=== PATIENT | female | born 1990 | race Caucasian/White ===

== ENCOUNTER 2020-11-05 17:05 | Emergency (ER) | payer OTHER ==
[~2020-11-05 17:05] MED LIST: BACTRIM DS TAB1 EACH PO; BUPROPION XL150 MG PO; NORETHINDRONE0.35 MG PO
[2020-11-05] MEDS ORDERED: FLEXERIL5 MG PO (18:20)
== END 2020-11-05 18:35 | disposition home or self-care (01) ==
LOC: FER 17:05
DX: S39.012A Strain of muscle, fascia and tendon of lower back, initial encounter (principal); F17.200 Nicotine dependence, unspecified, uncomplicated; V43.52XA Car driver injured in collision with other type car in traffic accident, initial encounter; Y92.410 Unspecified street and highway as the place of occurrence of the external cause
CPT/HCPCS: 72110

== ENCOUNTER 2021-05-02 16:51 | Emergency (ER) | payer OTHER | END 2021-05-02 22:12 | disposition home or self-care (01) | LOC: FER 16:51 | DX: O9A.219 Injury, poisoning and certain other consequences of external causes complicating pregnancy, unspecified trimester (principal); S10.93XA Contusion of unspecified part of neck, initial encounter; S20.311A Abrasion of right front wall of thorax, initial encounter; O99.334 Smoking (tobacco) complicating childbirth; F17.200 Nicotine dependence, unspecified, uncomplicated; Z88.8 Allergy status to other drugs, medicaments and biological substances; Y04.2XXA Assault by strike against or bumped into by another person, initial encounter; Y92.009 Unspecified place in unspecified non-institutional (private) residence as the place of occurrence of the external cause ==

== ENCOUNTER 2021-06-13 06:53 | Emergency (ER) | payer OTHER ==
[~2021-06-13 06:53] MED LIST changes: +FLEXERIL5 MG PO
[2021-06-13 08:27] LABS: BASOPHIL 0.4 % (0-2); EOSINOPHIL 3.2 % (0-5); HCT 40.4 % (37.0-47.0); HGB 13.7 g/dl (12.5-16.0); LYMPHOCYTE 4.4 % (15-48); MCH 31.2 pg (25.0-31.0); MCHC 33.9 g/dL (32.0-36.0); MPV 9.8 fL (6.0-9.5); NEUTROPHIL 85.7 % (41-80); NRBC 0; PLT 173 K/uL (150-400); RBC 4.39 M/uL (4.20-5.40); RDW 12.1 % (11.5-14.0); WBC 6.9 K/uL (4.0-10.5)
[2021-06-13 08:44] LABS: ALBUMIN 3.6 g/dL (3.4-5.0); BILIRUBIN - TOTAL 0.2 mg/dL (0.2-1.0); BUN/CREAT RATIO (CALC) 12.3 RATIO; CREATININE 0.65 mg/dL (0.51-0.95); GLOBULIN (CALCULATION) 3.4 g/dL; POTASSIUM 3.8 mmol/L (3.5-5.1)
[2021-06-13 09:21] LABS: INFLUENZA A NAA NEGATIVE (NEGATIVE)
[2021-06-13 09:30] LABS: CORONAVIRUS 2019 SARS-COV-2 POSITIVE (NEGATIVE)
== END 2021-06-13 10:28 | disposition home or self-care (01) ==
LOC: FER 06:53
PROVIDERS: Emergency Medicine
DX: O98.511 Other viral diseases complicating pregnancy, first trimester (principal); O99.331 Smoking (tobacco) complicating pregnancy, first trimester; U07.1 COVID-19; F17.210 Nicotine dependence, cigarettes, uncomplicated; Z3A.10 10 weeks gestation of pregnancy; Z88.8 Allergy status to other drugs, medicaments and biological substances
CPT/HCPCS: 36415; 80053; 85025; 99283; U0002